=== PATIENT | female | born 1975 | race Caucasian/White ===

== ENCOUNTER 2021-01-23 09:25 | Outpatient (CLI) | payer OTHER | END 2021-01-23 09:26 | disposition home or self-care (01) | LOC: BICULT 09:25 | PROVIDERS: ATTEND Nurse Practitioner Family | DX: R10.9 Unspecified abdominal pain (principal); R93.3 Abnormal findings on diagnostic imaging of other parts of digestive tract; I10 Essential (primary) hypertension | CPT/HCPCS: 93975 ==

== ENCOUNTER 2023-05-27 14:06 | Outpatient (CLI) | payer BC | END 2023-05-27 14:07 | disposition home or self-care (01) | LOC: BICMAMMO 14:06 | PROVIDERS: ATTEND Nurse Practitioner Family | DX: N63.20 Unspecified lump in the left breast, unspecified quadrant (principal); N60.01 Solitary cyst of right breast | CPT/HCPCS: 77066; G0279 ==